=== PATIENT | female | born 1955 | race Caucasian/White ===

== ENCOUNTER 2024-01-05 17:36 | Emergency (ER) | payer OTHER ==
[~2024-01-05] VITALS: Ht 165.1 cm; Wt 114.0 kg
[2024-01-05 17:38] VITALS: O2SAT 99
[2024-01-05] MEDS ORDERED: METHOCARBAMOL 750MG TABLET PO SCH (18:15)
[2024-01-05] MEDS ORDERED: KETOROLAC 30MG/ML VIAL IM ONE (18:15)
[2024-01-05 19:08] LABS: CHLORIDE 106 mEq/L (98-107); POTASSIUM 4.4 mEq/L (3.5-5.1); SODIUM 139 mEq/L (136-145)
[2024-01-05 19:09] LABS: CARBON DIOXIDE 30 mEq/L (21-32)
[2024-01-05 19:10] LABS: CALCIUM 9.4 mg/dL (8.7-10.4)
[2024-01-05 19:14] LABS: CREATININE 1.4 mg/dL (0.6-1.0); GLUCOSE 174 mg/dL (70-105); UREA NITROGEN BLOOD 22 mg/dL (9-23)
[2024-01-05 19:15] LABS: TROPONIN I HIGH SENSITIVITY 4 ng/L (3.0-34)
[2024-01-05 19:17] LABS: BASOPHILS % 0.9 % (0.0-2.0); EOSINOPHILS % 4.5 % (0.0-5.0); HEMATOCRIT. 46.4 % (36.0-48.0); HEMOGLOBIN. 15.2 g/dL (12.0-16.0); LYMPHOCYTES % 23.8 % (20.0-50.0); MEAN CORPUSCULAR HEMOGLOBIN 31.9 pg (28.0-32.0); MEAN CORPUSCULAR HGB CONC 32.7 g/dL (31.0-37.0); MEAN CORPUSCULAR VOLUME 97.4 fL (81.0-99.0); MEAN PLATELET VOLUME 9.1 fl (7.4-10.4); MONOCYTES % 6.9 % (2.0-8.0); NEUTROPHILS % 63.9 % (40.0-76.0); PLATELET 202 x1000/uL (130-400); RED BLOOD CELL COUNT 4.77 mill/uL (4.2-5.4); RED CELL DISTRIBUTION WIDTH 13.9 % (11.6-14.6); WHITE BLOOD COUNT 10.4 x1000/uL (4.5-11.0)
[2024-01-05 19:29] LABS: INR 0.9; PROTHROMBIN TIME 9.8 sec (9.6-11.0)
[2024-01-05] MEDS: LIDOCAINE 5% PATCH TOP SCH (19:41)
[2024-01-05] MEDS: KETOROLAC 30MG/ML VIAL IM NR (19:41)
[2024-01-05] MEDS: METHOCARBAMOL 500MG TABLET PO NR (19:41)
[2024-01-05] MEDS ORDERED: IBUP-2028 MT (21:01)
[2024-01-05] MEDS ORDERED: LIDO700A15 TP (21:01)
[2024-01-05] MEDS ORDERED: METH-653 MT (21:01)
[2024-01-05 21:40] VITALS: BP 166/56; PULSE 77; RESP 16; TEMP 36.55848; O2SAT 99
== END 2024-01-05 21:40 | disposition home or self-care (01) ==
LOC: ER 17:36
DX: M54.2 Cervicalgia (principal); E11.9 Type 2 diabetes mellitus without complications; I10 Essential (primary) hypertension; Z86.73 Personal history of transient ischemic attack (TIA), and cerebral infarction without residual deficits
CPT/HCPCS: 36415; 71045; 72040; 80048; 83880; 84484; 85025; 93005; 99285